=== PATIENT | female | born 1945 | race Caucasian/White ===

== ENCOUNTER → 2018-07-18 | Outpatient (CLI) | payer MEDICARE, BC ==
[2018-07-18 08:56] LABS: ALBUMIN 4.3 g/dL (3.5-5.0); CALCIUM 9.5 mg/dL (8.4-10.2); POTASSIUM 3.9 mmol/L (3.6-5.0); TOTAL BILIRUBIN 0.4 mg/dL (0.2-1.3); TOTAL PROTEIN 7.1 g/dL (6.3-8.2)
[2018-07-18 09:05] LABS: BASO # 0.1 (0.02-0.10); EOS # 0.1 (0.04-0.40); EOS % 0.6 % (1.0-5.0); HEMATOCRIT 36.8 % (37.0-47.0); HEMOGLOBIN 12.1 g/dL (12.5-16.0); LYMPH# 2.6 (1.50-4.00); MEAN CELL VOLUME 95 fl (78-100); MEAN CORPUSCULAR HEMOGLOBIN 31 pg (27-31); MEAN CORPUSCULAR HGB CONC 33 g/dL (33-37); MEAN PLATELET VOLUME 10.5 fl (7.4-10.4); MONO # 0.9 (0.20-0.80); NEU # 4.4 (1.40-6.50); PLATELET COUNT 368 K/mm3 (130-400); RED BLOOD COUNT 3.87 M/mm3 (4.10-5.30)
[2018-07-18 10:02] LABS: ERYTHROCYTE SEDIMENTATION RATE 37 mm/hr (0-30)
[2018-07-19 08:34] LABS: C-REACTIVE PROTEIN XXX
[2018-07-19 23:01] LABS: ANA SCREEN with REFLEX Negative (Negative)
== END ==
LOC: RAD 08:25
PROVIDERS: Internal Medicine
DX: R10.9 Unspecified abdominal pain (principal); I10 Essential (primary) hypertension; M35.3 Polymyalgia rheumatica

== ENCOUNTER → 2018-08-01 | Outpatient (CLI) | payer MEDICARE, BC ==
[2018-08-02 03:04] LABS: T3 TOTAL 83 ng/dL (87-178)
== END ==
LOC: LAB 11:41
PROVIDERS: Internal Medicine
DX: E03.9 Hypothyroidism, unspecified (principal)

== ENCOUNTER → 2018-10-07 | Outpatient (CLI) | payer MEDICARE, BC | LOC: LAB 11:24 | DX: M35.3 Polymyalgia rheumatica (principal); I10 Essential (primary) hypertension ==

== ENCOUNTER → 2018-11-28 | Outpatient (CLI) | payer MEDICARE, BC | LOC: RAD 08:41 | DX: M48.062 Spinal stenosis, lumbar region with neurogenic claudication (principal); M46.92 Unspecified inflammatory spondylopathy, cervical region; M46.96 Unspecified inflammatory spondylopathy, lumbar region; M43.8X5 Other specified deforming dorsopathies, thoracolumbar region ==

== ENCOUNTER → 2018-12-04 | Outpatient (CLI) | payer MEDICARE, BC | LOC: RAD 07:38 | DX: S32.009A Unspecified fracture of unspecified lumbar vertebra, initial encounter for closed fracture (principal); M85.80 Other specified disorders of bone density and structure, unspecified site; S22.009A Unspecified fracture of unspecified thoracic vertebra, initial encounter for closed fracture ==

== ENCOUNTER → 2018-12-11 | Outpatient (CLI) | payer MEDICARE, BC | LOC: RAD 14:21 | DX: M25.859 Other specified joint disorders, unspecified hip (principal) ==

== ENCOUNTER 2019-03-05 15:00 | Outpatient (RCR) | payer MEDICARE, BC | END 2019-03-05 15:30 | disposition still patient (30) | LOC: PT 15:00 | DX: M47.812 Spondylosis without myelopathy or radiculopathy, cervical region (principal); M47.816 Spondylosis without myelopathy or radiculopathy, lumbar region; M79.672 Pain in left foot; M79.671 Pain in right foot ==

== ENCOUNTER → 2019-09-09 | Outpatient (CLI) | payer MEDICARE, BC ==
[~2019-09-09] MED LIST: ALLOPURINOL300 M1 PO; AMLODIPINE BESYL5 MG PO; CLONIDINE HYDR0.1 MG PO; FLOMAX0.4 MG PO; FLUTICASON0.05 MG/AC NS; LEVOTHYROXINE0.05 MG PO; LOSARTAN POTAS100 MG PO; METOPROLOL SUCC50 M1 PO; OMEPRAZOLE40 MG PO; PREDNISONE 5MG5 MG PO; RALOXIFENE HCL60 MG PO; TRAMADOL 50 MG TAB PO
[2019-09-09 09:40] LABS: BASO # 0.1 (0.02-0.10); EOS # 0.2 (0.04-0.40); HEMATOCRIT 36.5 % (37.0-47.0); HEMOGLOBIN 11.5 g/dL (12.5-16.0); LYMPH# 2.7 (1.50-4.00); MEAN CELL VOLUME 99 fl (78-100); MEAN CORPUSCULAR HEMOGLOBIN 31 pg (27-31); MEAN CORPUSCULAR HGB CONC 32 g/dL (33-37); MEAN PLATELET VOLUME 10.3 fl (7.4-10.4); MONO # 0.8 (0.20-0.80); NEU # 4.6 (1.40-6.50); PLATELET COUNT 354 K/mm3 (130-400); RED CELL DISTRIBUTION WIDTH 14.9 % (11.5-14.5); WHITE BLOOD COUNT 8.5 K/mm3 (4.8-10.8)
[2019-09-09 09:50] LABS: POTASSIUM 3.8 mmol/L (3.5-5.1)
[2019-09-09 09:51] LABS: CALCIUM 8.8 mg/dL (8.3-10.5)
[2019-09-09 09:54] LABS: TOTAL BILIRUBIN 0.3 mg/dL (0.2-1.2)
[2019-09-09 09:59] LABS: MAGNESIUM 1.54 mg/dL (1.60-2.60)
[2019-09-09 10:55] LABS: ERYTHROCYTE SEDIMENTATION RATE 38 mm/hr (0-30)
== END ==
LOC: LAB 09:22
PROVIDERS: Internal Medicine
DX: E03.9 Hypothyroidism, unspecified (principal); I10 Essential (primary) hypertension; E78.2 Mixed hyperlipidemia; M35.3 Polymyalgia rheumatica; R73.02 Impaired glucose tolerance (oral)

== ENCOUNTER 2019-09-10 12:11 | Emergency (ER) | payer MEDICARE, BC ==
[2019-09-10 13:16] LABS: ALBUMIN 4.2 g/dL (3.4-4.8); BASO # 0.1 (0.02-0.10); EOS # 0.2 (0.04-0.40); EOS % 2.1 % (1.0-5.0); HEMATOCRIT 36.5 % (37.0-47.0); HEMOGLOBIN 11.6 g/dL (12.5-16.0); LYMPH# 2.6 (1.50-4.00); MEAN CELL VOLUME 98 fl (78-100); MEAN CORPUSCULAR HEMOGLOBIN 31 pg (27-31); MEAN CORPUSCULAR HGB CONC 32 g/dL (33-37); MEAN PLATELET VOLUME 10.5 fl (7.4-10.4); NEU # 4.8 (1.40-6.50); PLATELET COUNT 329 K/mm3 (130-400); POTASSIUM 3.6 mmol/L (3.5-5.1); RED BLOOD COUNT 3.73 M/mm3 (4.10-5.30); RED CELL DISTRIBUTION WIDTH 14.9 % (11.5-14.5); WHITE BLOOD COUNT 8.7 K/mm3 (4.8-10.8)
[2019-09-10 13:18] LABS: CALCIUM 9.3 mg/dL (8.3-10.5)
[2019-09-10 13:19] LABS: TOTAL PROTEIN 7.2 g/dL (6.2-8.1)
[2019-09-10 13:21] LABS: TOTAL BILIRUBIN 0.3 mg/dL (0.2-1.2)
[2019-09-10 13:24] LABS: URINE APPEARANCE CLOUDY; URINE BILIRUBIN NEGATIVE (NEGATIVE); URINE BLOOD 250 ery/uL (NEGATIVE); URINE COLOR YELLOW; URINE GLUCOSE NEGATIVE (NEGATIVE); URINE KETONE NEGATIVE (NEGATIVE); URINE LEUKOCYTE ESTERASE TRACE (NEGATIVE); URINE NITRATE NEGATIVE (NEGATIVE); URINE PROTEIN(semi-quant) 1+ mg/dL (NEGATIVE); URINE UROBILINOGEN NORMAL (NORMAL)
[2019-09-10] MEDS ORDERED: METOPROLOL SUCC50 M1 PO (14:07)
[2019-09-10] MEDS ORDERED: LOSARTAN POTAS100 MG PO (14:07)
[2019-09-10] MEDS ORDERED: FLUTICASON0.05 MG/AC NS (14:07)
[2019-09-10] MEDS ORDERED: RALOXIFENE HCL60 MG PO (14:07)
[2019-09-10] MEDS ORDERED: PREDNISONE 5MG5 MG PO (14:08)
[2019-09-10] MEDS ORDERED: CLONIDINE HYDR0.1 MG PO (14:08)
[2019-09-10] MEDS ORDERED: ALLOPURINOL300 M1 PO (14:08)
[2019-09-10] MEDS ORDERED: LEVOTHYROXINE0.05 MG PO (14:09)
[2019-09-10] MEDS ORDERED: OMEPRAZOLE40 MG PO (14:09)
[2019-09-10] MEDS ORDERED: AMLODIPINE BESYL5 MG PO (14:09)
[2019-09-10] MEDS ORDERED: TRAMADOL 50 MG TAB PO (15:10)
[2019-09-10] MEDS ORDERED: FLOMAX0.4 MG PO (15:10)
[2019-09-10 16:40] VITALS: BP 168/82
== END 2019-09-10 15:23 | disposition home or self-care (01) ==
LOC: ED 12:11
PROVIDERS: Physician Assistant
DX: N20.0 Calculus of kidney (principal); I10 Essential (primary) hypertension; Z87.442 Personal history of urinary calculi; Z90.710 Acquired absence of both cervix and uterus
CPT/HCPCS: J1885; J2405; J3010; J7030

== ENCOUNTER 2020-01-01 14:00 | Outpatient (RCR) | payer MEDICARE, BC | END 2020-01-01 14:30 | LOC: PT 14:00 | DX: M47.812 Spondylosis without myelopathy or radiculopathy, cervical region (principal); M47.816 Spondylosis without myelopathy or radiculopathy, lumbar region; M79.671 Pain in right foot; M79.672 Pain in left foot ==

== ENCOUNTER → 2020-05-18 | Outpatient (CLI) | payer MEDICARE, BC ==
[~2020-05-18] MED LIST changes: +CRESTOR5 MG PO; +FINASTERIDE5 M1 PO; +XARELTO STARTER20 MG PO
[2020-05-18 12:30] LABS: BASO # 0.1 (0.02-0.10); EOS # 0.3 (0.04-0.40); EOS % 2.7 % (1.0-5.0); HEMATOCRIT 37.8 % (37.0-47.0); HEMOGLOBIN 11.9 g/dL (12.5-16.0); LYMPH# 1.5 (1.50-4.00); MEAN CELL VOLUME 97 fl (78-100); MEAN CORPUSCULAR HEMOGLOBIN 30 pg (27-31); MEAN CORPUSCULAR HGB CONC 32 g/dL (33-37); MEAN PLATELET VOLUME 10.1 fl (7.4-10.4); MONO # 1.1 (0.20-0.80); NEU # 7.3 (1.40-6.50); PLATELET COUNT 365 K/mm3 (130-400); RED BLOOD COUNT 3.91 M/mm3 (4.10-5.30); RED CELL DISTRIBUTION WIDTH 14.7 % (11.5-14.5); WHITE BLOOD COUNT 10.3 K/mm3 (4.8-10.8)
[2020-05-18 12:38] LABS: ALBUMIN 4.2 g/dL (3.4-4.8)
[2020-05-18 12:39] LABS: POTASSIUM 4.2 mmol/L (3.5-5.1)
[2020-05-18 12:40] LABS: CALCIUM 9.3 mg/dL (8.3-10.5)
[2020-05-18 12:43] LABS: TOTAL BILIRUBIN 0.3 mg/dL (0.2-1.2)
[2020-05-18 13:35] LABS: D-DIMER 8.72 mg/L FEU (0.15-0.50); ERYTHROCYTE SEDIMENTATION RATE 38 mm/hr (0-30)
== END ==
LOC: RAD 12:14
PROVIDERS: Internal Medicine
DX: I10 Essential (primary) hypertension (principal)

== ENCOUNTER → 2020-05-19 | Outpatient (CLI) | payer MEDICARE, BC | LOC: RAD 08:29 | DX: I26.99 Other pulmonary embolism without acute cor pulmonale (principal); I10 Essential (primary) hypertension; R79.89 Other specified abnormal findings of blood chemistry | CPT/HCPCS: Q9967 ==

== ENCOUNTER → 2020-05-21 | Outpatient (CLI) | payer MEDICARE, BC ==
[2020-05-19 14:30] VITALS: BP 156/86
== END ==
LOC: RAD 05-20 10:00
DX: R91.8 Other nonspecific abnormal finding of lung field (principal); D17.71 Benign lipomatous neoplasm of kidney; N28.89 Other specified disorders of kidney and ureter; G93.6 Cerebral edema
CPT/HCPCS: Q9967

== ENCOUNTER → 2020-06-29 | Outpatient (CLI) | payer MEDICARE, BC ==
[2020-05-19 14:30] VITALS: BP 156/86
[2020-06-29 17:28] LABS: ALBUMIN 3.7 g/dL (3.4-4.8); POTASSIUM 4.5 mmol/L (3.5-5.1)
[2020-06-29 17:29] LABS: CALCIUM 8.3 mg/dL (8.3-10.5)
[2020-06-29 17:30] LABS: TOTAL PROTEIN 6.2 g/dL (6.2-8.1)
[2020-06-29 17:32] LABS: TOTAL BILIRUBIN 0.3 mg/dL (0.2-1.2)
[2020-06-29 17:36] LABS: MAGNESIUM 1.83 mg/dL (1.60-2.60)
[2020-06-29 17:46] LABS: HEMATOCRIT 37.6 % (37.0-47.0); HEMOGLOBIN 11.9 g/dL (12.5-16.0); MEAN CELL VOLUME 97 fl (78-100); MEAN CORPUSCULAR HEMOGLOBIN 31 pg (27-31); MEAN CORPUSCULAR HGB CONC 32 g/dL (33-37); MEAN PLATELET VOLUME 10.8 fl (7.4-10.4); PLATELET COUNT 265 K/mm3 (130-400); RED BLOOD COUNT 3.88 M/mm3 (4.10-5.30); WHITE BLOOD COUNT 13.6 K/mm3 (4.8-10.8)
[2020-06-29 17:49] LABS: RED CELL DISTRIBUTION WIDTH 18.1 % (11.5-14.5)
[2020-06-29 17:55] LABS: BAND 4 % (0-10); LYMPHOCYTE 10 % (20-51); MONOCYTE 3 % (3-10); NEUTROPHILS 80 % (42-75)
== END ==
LOC: RAD 16:45
PROVIDERS: Internal Medicine
DX: C78.00 Secondary malignant neoplasm of unspecified lung (principal); J18.1 Lobar pneumonia, unspecified organism; I26.99 Other pulmonary embolism without acute cor pulmonale; J84.89 Other specified interstitial pulmonary diseases
CPT/HCPCS: Q9967

== ENCOUNTER → 2020-07-01 | Outpatient (CLI) | payer MEDICARE, BC ==
[2020-05-19 14:30] VITALS: BP 156/86
[~2020-07-01] MED LIST changes: +DECADRON 4MG TAB4 MG PO; +LEVOFLOXACIN500 M1 PO; +PROAIR HFA0.09 MG/AC IH; +TOPROL XL 50MG50 MG PO; +VALIUM 5MG T5 MG/TAB PO; +XARELTO20 MG PO
== END ==
LOC: LAB 07:32
DX: Z01.818 Encounter for other preprocedural examination (principal); Z20.828 Contact with and (suspected) exposure to other viral communicable diseases

== ENCOUNTER → 2020-07-06 | Outpatient (CLI) | payer MEDICARE, BC ==
[2020-05-19 14:30] VITALS: BP 156/86
[~2020-07-06] MED LIST changes: -DECADRON 4MG TAB4 MG PO; -LEVOFLOXACIN500 M1 PO; -PROAIR HFA0.09 MG/AC IH; -TOPROL XL 50MG50 MG PO; -VALIUM 5MG T5 MG/TAB PO; -XARELTO20 MG PO
[2020-07-06 12:29] LABS: HEMATOCRIT 34.5 % (37.0-47.0); HEMOGLOBIN 11.1 g/dL (12.5-16.0); MEAN CELL VOLUME 97 fl (78-100); MEAN CORPUSCULAR HEMOGLOBIN 31 pg (27-31); MEAN CORPUSCULAR HGB CONC 32 g/dL (33-37); PLATELET COUNT 306 K/mm3 (130-400); RED BLOOD COUNT 3.57 M/mm3 (4.10-5.30); WHITE BLOOD COUNT 13.6 K/mm3 (4.8-10.8)
[2020-07-06 12:30] LABS: RED CELL DISTRIBUTION WIDTH 18.7 % (11.5-14.5)
[2020-07-06 12:38] LABS: ALBUMIN 3.3 g/dL (3.4-4.8); POTASSIUM 4.2 mmol/L (3.5-5.1)
[2020-07-06 12:39] LABS: CALCIUM 8.3 mg/dL (8.3-10.5); LYMPHOCYTE 12 % (20-51); MONOCYTE 6 % (3-10); NEUTROPHILS 80 % (42-75)
[2020-07-06 12:40] LABS: TOTAL PROTEIN 4.8 g/dL (6.2-8.1)
[2020-07-06 12:42] LABS: TOTAL BILIRUBIN 0.3 mg/dL (0.2-1.2)
[2020-07-06 13:20] LABS: ERYTHROCYTE SEDIMENTATION RATE 18 mm/hr (0-30)
== END ==
LOC: LAB 12:03
PROVIDERS: Internal Medicine
DX: Z01.812 Encounter for preprocedural laboratory examination (principal); J90 Pleural effusion, not elsewhere classified; J18.9 Pneumonia, unspecified organism

== ENCOUNTER 2020-07-13 09:03 | Emergency (ER) | payer MEDICARE, BC ==
[~2020-07-13] VITALS: Ht 160 cm; Wt 75.0 kg
[2020-07-13] MEDS ORDERED: XARELTO20 MG PO (09:56)
[2020-07-13] MEDS ORDERED: PROAIR HFA0.09 MG/AC IH (09:58)
[2020-07-13] MEDS ORDERED: DECADRON 4MG TAB4 MG PO (10:00)
[2020-07-13] MEDS ORDERED: VALIUM 5MG T5 MG/TAB PO (10:00)
[2020-07-13 10:01] LABS: HEMATOCRIT 37.6 % (37.0-47.0); HEMOGLOBIN 12.2 g/dL (12.5-16.0); MEAN CELL VOLUME 97 fl (78-100); MEAN CORPUSCULAR HEMOGLOBIN 31 pg (27-31); MEAN CORPUSCULAR HGB CONC 32 g/dL (33-37); MEAN PLATELET VOLUME 10.9 fl (7.4-10.4); PLATELET COUNT 276 K/mm3 (130-400); RED BLOOD COUNT 3.88 M/mm3 (4.10-5.30); WHITE BLOOD COUNT 13.9 K/mm3 (4.8-10.8)
[2020-07-13] MEDS ORDERED: LEVOFLOXACIN500 M1 PO (10:01)
[2020-07-13] MEDS ORDERED: TOPROL XL 50MG50 MG PO (10:03)
[2020-07-13 10:14] LABS: ALBUMIN 3.4 g/dL (3.4-4.8); POTASSIUM 3.8 mmol/L (3.5-5.1)
[2020-07-13 10:15] LABS: CALCIUM 8.2 mg/dL (8.3-10.5)
[2020-07-13 10:16] LABS: TOTAL PROTEIN 5.8 g/dL (6.2-8.1)
[2020-07-13 10:17] LABS: RED CELL DISTRIBUTION WIDTH 18.9 % (11.5-14.5)
[2020-07-13 10:18] LABS: TOTAL BILIRUBIN 0.4 mg/dL (0.2-1.2)
[2020-07-13 10:27] LABS: D-DIMER 5.53 mg/L FEU (0.15-0.50); PARTIAL THROMBOPLASTIN TIME 23.6 SECONDS (21.0-32.0)
[2020-07-13 10:29] LABS: TROPONIN-I 0.13 ng/mL (<0.030)
[2020-07-13 10:46] LABS: BAND 1 % (0-10); LYMPHOCYTE 12 % (20-51); MONOCYTE 11 % (3-10); NEUTROPHILS 74 % (42-75)
[2020-07-13 11:07] LABS: ERYTHROCYTE SEDIMENTATION RATE 37 mm/hr (0-30)
[2020-07-13 12:29] LABS: URINE APPEARANCE CLEAR; URINE BILIRUBIN NEGATIVE (NEGATIVE); URINE COLOR YELLOW; URINE GLUCOSE NEGATIVE (NEGATIVE); URINE KETONE NEGATIVE (NEGATIVE); URINE LEUKOCYTE ESTERASE TRACE (NEGATIVE); URINE NITRATE NEGATIVE (NEGATIVE); URINE PROTEIN(semi-quant) TRACE mg/dL (NEGATIVE); URINE UROBILINOGEN NORMAL (NORMAL)
[2020-07-13 12:30] LABS: URINE BLOOD NEGATIVE (NEGATIVE); URINE MUCUS PRESENT (NOT PRESENT); URINE WBC 16-30 /hpf (0-3)
[2020-07-13 12:57] LABS: PARTIAL THROMBOPLASTIN TIME 22.6 SECONDS (21.0-32.0); PROTHROMBIN TIME 10.4 SECONDS (9.0-12.0)
[2020-07-13 14:19] VITALS: BP 151/75
== END 2020-07-13 14:15 | disposition short-term general hospital (02) ==
LOC: ED 09:03
PROVIDERS: Nurse Practitioner Family; Physician Assistant
DX: Z87.891 Personal history of nicotine dependence (principal); Z79.01 Long term (current) use of anticoagulants; J18.9 Pneumonia, unspecified organism; J81.1 Chronic pulmonary edema; I26.99 Other pulmonary embolism without acute cor pulmonale; J96.90 Respiratory failure, unspecified, unspecified whether with hypoxia or hypercapnia; C34.90 Malignant neoplasm of unspecified part of unspecified bronchus or lung; C79.31 Secondary malignant neoplasm of brain; E03.9 Hypothyroidism, unspecified; Z79.890 Hormone replacement therapy
CPT/HCPCS: J1644; J1940; J7030; Q9967